=== PATIENT | female | born 2000 | race Caucasian/White ===

== ENCOUNTER 2020-11-29 11:46 | Emergency (ER) | payer OTHER ==
[~2020-11-29 11:46] MED LIST: BACTRIM DS TAB1 EACH PO
[2020-11-29 13:15] LABS: BILIRUBIN NEGATIVE (NEGATIVE); BLOOD NEGATIVE Ery/uL (NEGATIVE); CLARITY CLEAR (CLEAR); COLOR YELLOW (YELLOW); GLUCOSE (U) NORMAL (NORMAL); LEUKOCYTES 1+ Leu/uL (NEGATIVE); NITRITE NEGATIVE (NEGATIVE); PROTEIN NEGATIVE (NEGATIVE); SPECIFIC GRAVITY 1.015 (1.001-1.030); pH 7.5 (5.0-9.0)
[2020-11-29 13:28] LABS: BACTERIA TRACE; MUCOUS TRACE
[2020-11-29 13:39] LABS: BASOPHIL 0.8 % (0-2); HCT 39.3 % (37.0-47.0); HGB 13.4 g/dl (12.5-16.0); LYMPHOCYTE 27.1 % (15-48); MCH 29.3 pg (25.0-31.0); MCHC 34.1 g/dL (32.0-36.0); MCV 85.8 fL (78.0-100.0); MONOCYTE 7.3 % (0-12); MPV 11.1 fL (6.0-9.5); NEUTROPHIL 62.7 % (41-80); NRBC 0; PLT 239 K/uL (150-400); RBC 4.58 M/uL (4.20-5.40); RDW 11.9 % (11.5-14.0); WBC 7.4 K/uL (4.0-10.5)
[2020-11-29 14:05] LABS: ALBUMIN 3.6 g/dL (3.4-5.0); BILIRUBIN - TOTAL 0.5 mg/dL (0.2-1.0); BUN/CREAT RATIO (CALC) 9.3 RATIO; CREATININE 0.75 mg/dL (0.51-0.95); FT4 (FREE T4) 1.1 ng/dL (0.76-1.46); MAGNESIUM 1.9 mg/dL (1.8-2.4); POTASSIUM 3.4 mmol/L (3.5-5.1); TOTAL PROTEIN 7.6 g/dL (6.4-8.2)
[2020-11-29] MEDS ORDERED: ADULT GLYCERIN1 EACH PR (17:41)
[2020-11-29] MEDS ORDERED: GOLYTELY SOLU4000 ML PO (17:41)
== END 2020-11-29 18:15 | disposition home or self-care (01) ==
LOC: FER 11:46
PROVIDERS: Emergency Medicine
DX: K59.00 Constipation, unspecified (principal)
CPT/HCPCS: 36415; 80053; 81001; 83735; 84439; 84443; 85025; J7030; Q9967

== ENCOUNTER 2022-03-05 19:53 | Emergency (ER) | payer OTHER ==
[~2022-03-05 19:53] MED LIST changes: +ADULT GLYCERIN1 EACH PR; +GOLYTELY SOLU4000 ML PO
== END 2022-03-05 23:47 | disposition home or self-care (01) ==
LOC: FER 19:53
DX: K59.00 Constipation, unspecified (principal)
CPT/HCPCS: 74022